=== PATIENT | female | born 1940 | race African-American/Black ===

== ENCOUNTER 2024-03-09 15:20 | Inpatient (IN) | payer OTHER ==
[~2024-03-09] VITALS: Ht 162.6 cm; Wt 77.6 kg
[2024-03-09 04:00] VITALS: BP 139/44; PULSE 66; RESP 18; TEMP 98.1
[2024-03-09 08:00] VITALS: BP 140/54; PULSE 74; RESP 20; TEMP 98
[2024-03-09 12:00] VITALS: BP 160/69; PULSE 72; RESP 17; TEMP 98
[~2024-03-09 15:20] MED LIST: BISO10TA28 PO; LOSA100T33 PO; MINO2.5T19 PO
[2024-03-09 17:32] LABS: DIFFERENTIAL COMMENT 1; HEMATOCRIT. 31.3 % (36.0-48.0); HEMOGLOBIN. 9.5 g/dL (12.0-16.0); MEAN CORPUSCULAR HGB CONC 30.3 g/dL (31.0-37.0); MEAN CORPUSCULAR VOLUME 92.5 fL (81.0-99.0); MEAN PLATELET VOLUME 8.1 fl (7.4-10.4); PLATELET 202 x1000/uL (130-400); RED BLOOD CELL COUNT 3.39 mill/uL (4.2-5.4); RED CELL DISTRIBUTION WIDTH 18.1 % (11.6-14.6); WHITE BLOOD COUNT 11.6 x1000/uL (4.5-11.0)
[2024-03-09 17:39] LABS: CHLORIDE 106 mEq/L (98-107); SODIUM 138 mEq/L (136-145)
[2024-03-09 17:40] LABS: CALCIUM 8.6 mg/dL (8.7-10.4); CARBON DIOXIDE 19 mEq/L (21-32)
[2024-03-09 17:45] LABS: CREATININE 3.2 mg/dL (0.6-1.0); GLUCOSE 266 mg/dL (70-105); UREA NITROGEN BLOOD 39 mg/dL (9-23)
[2024-03-09 17:46] LABS: AMMONIA < 17 uMol/L (<32); ETHANOL BLOOD < 10 mg/dL (<10)
[2024-03-09 17:47] LABS: TROPONIN I HIGH SENSITIVITY 57 ng/L (3.0-34)
[2024-03-09 18:28] LABS: PLATELET ESTIMATE NORMAL
[2024-03-09 18:29] LABS: ANISOCYTOSIS 1+; HYPOCHROMASIA 1+
[2024-03-09] MEDS ORDERED: ASPIRIN 81MG TABLET PO ONE (19:30)
[2024-03-09] MEDS ORDERED: ACETAMINOPHEN 325MG TABLET PO ONE (20:45)
[2024-03-09] MEDS ORDERED: ACETAMINOPHEN 325MG TABLET PO PRN (21:15)
[2024-03-09] MEDS ORDERED: GUAIFENESIN 200MG/10ML SUGAR FREE UDC PO PRN (21:15)
[2024-03-09] MEDS ORDERED: IPRATROPIUM/ALBUTEROL 0.5-3(2.5)MG/3ML NEB HHN PRN (21:15)
[2024-03-09] MEDS ORDERED: CLONIDINE 0.1MG TABLET PO PRN (21:15)
[2024-03-09] MEDS ORDERED: ONDANSETRON HCL 4MG/2ML INJ IV PRN (21:15)
[2024-03-09] MEDS: HYDROCODONE/ACETAMINOPHEN 10/325MG TABLET PO NR (21:30)
[2024-03-09] MEDS ORDERED: HYDROCODONE/ACETAMINOPHEN 5/325MG TABLET PO ONE (21:30)
[2024-03-09 21:52] LABS: IRON 55 ug/dL (50-170)
[2024-03-09 21:53] LABS: TRIGLYCERIDE 152 mg/dL (0-150)
[2024-03-09 21:54] LABS: LDL CHOLESTEROL 92 mg/dL (5-100)
[2024-03-09 21:55] LABS: ALBUMIN 3.3 g/dL (3.2-4.8); CHOLESTEROL 175 mg/dL (<200); HDL CHOLESTEROL 55 mg/dL (>65); TOTAL IRON BINDING CAPACITY 122 ug/dl (250-425)
[2024-03-09 21:58] LABS: T4 FREE 1.35 ng/dL (0.89-1.76)
[2024-03-09 22:07] LABS: FERRITIN 1058 ng/mL (10-291); FOLIC ACID (FOLATE) SERUM 18.96 ng/mL (>5.38); VITAMIN B12 SERUM 600 pg/mL (211-911)
[2024-03-09] MEDS ORDERED: DEXTROSE 50% WATER 50ML SYRINGE IV PRN (22:30)
[2024-03-09] MEDS ORDERED: MELATONIN 3MG TABLET PO PRN (22:45)
[2024-03-09] MEDS: SODIUM CHLORIDE 0.9% 1,000 ML IV SCH (23:19)
[2024-03-09 23:30] VITALS: BP 140/54; PULSE 74; RESP 20; TEMP 98
[2024-03-09] MEDS: ACETAMINOPHEN 325MG TABLET PO PRN (23:34)
[2024-03-10] VITALS: BP 160/69; PULSE 72; RESP 17; TEMP 98
[2024-03-10] MEDS: CEFTRIAXONE 1GM/50ML 50 ML IV SCH ×2 (00:09→17:39)
[2024-03-10] MEDS: DIPHENHYDRAMINE 50MG CAPSULE PO NR (00:42)
[2024-03-10 03:03] LABS: PHOSPHORUS 4.4 mg/dL (2.5-4.9)
[2024-03-10 03:04] LABS: CREATINE KINASE 39 IU/L (34-145)
[2024-03-10 03:57] LABS: TROPONIN I HIGH SENSITIVITY 70 ng/L (3.0-34)
[2024-03-10 04:00] VITALS: BP 139/44; PULSE 66; RESP 18; TEMP 98.1
[2024-03-10] MEDS: BLOOD SUGAR DIAGNOSTIC STRIP TEST SCH (06:17)
[2024-03-10] MEDS: INSULIN LISPRO 100 UNITS/ML SUBCUT SCH (07:40)
[2024-03-10 08:00] VITALS: BP 145/53; PULSE 71; RESP 18; TEMP 99.1
[2024-03-10] MEDS ORDERED: BISOPROLOL FUMARATE PO SCH (09:00)
[2024-03-10] MEDS: BISOPROLOL FUMARATE 5 MG TABLET PO SCH (09:00)
[2024-03-10] MEDS: LOSARTAN 100 MG TABLET PO SCH (09:12)
[2024-03-10] MEDS: MINOXIDIL 2.5MG TABLET PO SCH (09:12)
[2024-03-10] MEDS: PANTOPRAZOLE 40MG DR TABLET PO SCH (09:13)
[2024-03-10] MEDS: DIPHENHYDRAMINE 25MG CAPSULE PO PRN (09:13)
[2024-03-10 10:02] LABS: HEMATOCRIT 25.2 % (36.0-48.0); HEMOGLOBIN 8.2 g/dL (12.0-16.0); MEAN CORPUSCULAR HEMOGLOBIN 29.1 pg (28.0-32.0); MEAN CORPUSCULAR HGB CONC 32.5 g/dL (31.0-37.0); MEAN CORPUSCULAR VOLUME 89.7 fL (81.0-99.0); PLATELET 162 x1000/uL (130-400); RED BLOOD CELL COUNT 2.81 mill/uL (4.2-5.4); RED CELL DISTRIBUTION WIDTH 17.4 % (11.6-14.6); WHITE BLOOD COUNT 7.7 x1000/uL (4.5-11.0)
[2024-03-10 10:16] LABS: CHLORIDE 108 mEq/L (98-107); POTASSIUM 3.8 mEq/L (3.5-5.1); SODIUM 137 mEq/L (136-145)
[2024-03-10 10:17] LABS: CALCIUM 7.9 mg/dL (8.7-10.4); CARBON DIOXIDE 21 mEq/L (21-32)
[2024-03-10 10:22] LABS: CREATININE 3.3 mg/dL (0.6-1.0); GLUCOSE 225 mg/dL (70-105); UREA NITROGEN BLOOD 35 mg/dL (9-23)
[2024-03-10 10:24] LABS: ALANINE AMINOTRANSFERASE 8 IU/L (10-49); ALBUMIN 2.8 g/dL (3.2-4.8); ASPARTATE AMINOTRANSFERASE 20 IU/L (<34); BILIRUBIN TOTAL 0.2 mg/dL (0.1-1.0); PROTEIN TOTAL 5.7 g/dL (6.0-8.3)
[2024-03-10 10:25] LABS: CREATINE KINASE 34 IU/L (34-145)
[2024-03-10 11:26] LABS: TROPONIN I HIGH SENSITIVITY 48 ng/L (3.0-34)
[2024-03-10 12:00] VITALS: BP 162/70; PULSE 98; RESP 18; TEMP 96.6
[2024-03-10] MEDS: ENOXAPARIN 80MG/0.8ML SYR SUBCUT SCH (13:48)
[2024-03-10 16:00] VITALS: BP 160/60; PULSE 74; RESP 18; TEMP 97.3
[2024-03-10 17:19] VITALS: BP 160/80; PULSE 74; TEMP 97.3; O2SAT 100
== END 2024-03-10 18:45 | disposition short-term general hospital (02) | DRG 74 ==
LOC: ER 15:20 → 8WST 20:41 → EDBEDREQ 20:44 → EDBEDREQTM 20:44
PROVIDERS: ADMIT Internal Medicine; ATTEND Internal Medicine
DX: G90.8 Other disorders of autonomic nervous system (principal); N39.0 Urinary tract infection, site not specified; I13.0 Hypertensive heart and chronic kidney disease with heart failure and stage 1 through stage 4 chronic kidney disease, or unspecified chronic kidney disease; I67.82 Cerebral ischemia; R47.01 Aphasia; I95.1 Orthostatic hypotension; E78.5 Hyperlipidemia, unspecified; I50.9 Heart failure, unspecified; N18.9 Chronic kidney disease, unspecified; J45.909 Unspecified asthma, uncomplicated; D64.9 Anemia, unspecified; E11.22 Type 2 diabetes mellitus with diabetic chronic kidney disease; D72.829 Elevated white blood cell count, unspecified; Z96.651 Presence of right artificial knee joint; Z79.4 Long term (current) use of insulin; Z86.73 Personal history of transient ischemic attack (TIA), and cerebral infarction without residual deficits; Z74.01 Bed confinement status; L89.899 Pressure ulcer of other site, unspecified stage; E11.621 Type 2 diabetes mellitus with foot ulcer; E11.65 Type 2 diabetes mellitus with hyperglycemia
CPT/HCPCS: 36415; 71045; 76770; 80048; 80053; 80061; 80320; 82040; 82140; 82550; 82607; 82728; 82746; 82962; 83036; 83540; 83550; 83605; 83735; 83880; 84100; 84439; 84443; 84484; 85025; 85027; 93005; 93970; 99291; C1893; J0696; J1650; J1815; Q0163; G0480

== ENCOUNTER 2025-08-21 23:03 | Inpatient (IN) | payer OTHER, MEDICARE ==
[~2025-08-21] VITALS: Ht 165.1 cm; Wt 71.2 kg
[~2025-08-21 23:03] MED LIST changes: +ASPI-1497 MT; +ATOR-2 MT; +CLOP-31 MT; +FOLI0.8T53 PO; +HYDR100T31; +ISOS30TA91; +SEVE800T25
[2025-08-21 23:05] VITALS: O2SAT 100
[2025-08-22] VITALS (14 sets, daily range): BP systolic 99–192; BP diastolic 59–117; PULSE 58–123; RESP 10–20; TEMP 36.33624–36.8; O2SAT 98–100
[2025-08-22 00:24] LABS: BASOPHILS % 0.5 % (0.0-2.0); EOSINOPHILS % 0.4 % (0.0-5.0); HEMATOCRIT. 27.5 % (36.0-48.0); HEMOGLOBIN. 9.0 g/dL (12.0-16.0); LYMPHOCYTES % 14.0 % (20.0-50.0); MEAN PLATELET VOLUME 8.1 fl (7.4-10.4); MONOCYTES % 7.8 % (2.0-8.0); NEUTROPHILS % 77.3 % (40.0-76.0); PLATELET 244 x1000/uL (130-400); RED BLOOD CELL COUNT 2.91 mill/uL (4.2-5.4); RED CELL DISTRIBUTION WIDTH 17.1 % (11.6-14.6)
[2025-08-22 00:38] LABS: UREA NITROGEN BLOOD 55 mg/dL (9-23)
[2025-08-22 00:39] LABS: ASPARTATE AMINOTRANSFERASE 13 IU/L (<34)
[2025-08-22 00:40] LABS: BILIRUBIN DIRECT < 0.1 mg/dL (<=3.0); BILIRUBIN TOTAL < 0.2 mg/dL (0.1-1.0); PHOSPHORUS 3.4 mg/dL (2.5-4.9); PROTEIN TOTAL 7.3 g/dL (6.0-8.3)
[2025-08-22 00:50] LABS: CREATININE 6.1 mg/dL (0.6-1.0)
[2025-08-22 00:51] LABS: TROPONIN I HIGH SENSITIVITY 123 ng/L (3.0-34)
[2025-08-22 01:05] LABS: INR 1.0
[2025-08-22] MEDS ORDERED: HEPARIN 60 UNITS/KG BOLUS IV SCH (02:15)
[2025-08-22] MEDS ORDERED: HEPARIN BOLUS PRN aPTT 30-44 IV ×2 (02:15→02:22)
[2025-08-22] MEDS ORDERED: HEPARIN BOLUS PRN aPTT <30 IV ×2 (02:15→02:22)
[2025-08-22] MEDS: DIPHENHYDRAMINE 25MG CAPSULE PO ONE (02:31)
[2025-08-22] MEDS: HYDRALAZINE 20MG/ML VIAL IV NR (02:31)
[2025-08-22] MEDS: HEPARIN 60 UNITS/KG BOLUS IV NR (02:52)
[2025-08-22] MEDS: HEPARIN 25,000 UNITS PREMIX 250 ML IV SCH (02:56)
[2025-08-22] MEDS: ASPIRIN 81MG TABLET PO NR (02:58)
[2025-08-22] MEDS ORDERED: IPRATROPIUM/ALBUTEROL 0.5-3(2.5)MG/3ML NEB HHN PRN (04:00)
[2025-08-22] MEDS ORDERED: MAGNESIUM/ALUMINUM HYDROXIDE/SIMETHICONE 30ML UDC PO PRN (04:00)
[2025-08-22] MEDS ORDERED: DEXTROSE 50% WATER 50ML SYRINGE IV PRN ×2 (04:00→06:45)
[2025-08-22] MEDS ORDERED: ONDANSETRON HCL 4MG/2ML INJ IV PRN (04:00)
[2025-08-22] MEDS ORDERED: GUAIFENESIN 200MG/10ML SUGAR FREE UDC PO PRN (04:00)
[2025-08-22] MEDS: ISOSORBIDE MONONITRATE 30MG TABLET SR 24HR PO SCH ×2 (05:22→14:52)
[2025-08-22] MEDS: LOSARTAN 100 MG TABLET PO SCH (05:22)
[2025-08-22] MEDS: HYDRALAZINE HCL 100MG TABLET PO SCH (05:23)
[2025-08-22] MEDS: BLOOD SUGAR DIAGNOSTIC STRIP TEST SCH ×2 (07:30)
[2025-08-22] MEDS: INSULIN LISPRO 100 UNITS/ML SUBCUT SCH (08:00)
[2025-08-22] MEDS: ASPIRIN 81MG TABLET PO SCH (08:49)
[2025-08-22] MEDS: SEVELAMER CARBONATE 800 MG TABLET PO SCH (08:49)
[2025-08-22] MEDS: FAMOTIDINE 20MG/2ML VIAL IV SCH (08:50)
[2025-08-22] MEDS: CLOPIDOGREL 75MG TABLET PO SCH (08:50)
[2025-08-22] MEDS: FOLIC ACID/VITAMIN B COMP W-C TABLET PO SCH (09:23)
[2025-08-22] MEDS: HYDRALAZINE 20MG/ML VIAL IV PRN (10:45)
[2025-08-22 14:03] LABS: FOLIC ACID (FOLATE) SERUM > 20.00 ng/mL (>5.38)
[2025-08-22 14:31] LABS: TROPONIN I HIGH SENSITIVITY 81 ng/L (3.0-34)
[2025-08-22] MEDS ORDERED: LIDOCAINE HCL 1% 10 MG/ML 5ML VIAL INJ NR (17:00)
[2025-08-22] MEDS ORDERED: ENOXAPARIN 30MG/0.3ML SYR SUBCUT SCH (18:00)
[2025-08-22 18:39] LABS: HEPATITIS A AB IGM NEGATIVE (Negative); HEPATITIS B CORE AB IGM NEGATIVE (Negative)
[2025-08-22 18:40] LABS: HEPATITIS C AB NON REACTIVE (Neg) (Negative)
[2025-08-22] MEDS: ACETAMINOPHEN 325MG TABLET PO PRN (21:29)
[2025-08-22] MEDS: ATORVASTATIN CALCIUM 40MG TABLET PO SCH (21:29)
[2025-08-22] MEDS: EPOETIN ALFA-EPBX 4,000 UNITS/ML VIAL SUBCUT SCH (21:30)
[2025-08-23] VITALS (14 sets, daily range): BP systolic 133–190; BP diastolic 53–95; PULSE 57–76; RESP 9–22; TEMP 36.3–36.8; O2SAT 95–100
[2025-08-23] MEDS: ISOSORBIDE MONONITRATE 60MG TABLET SR 24HR PO SCH (09:00)
[2025-08-23] MEDS ORDERED: CLOP-31 MT ×2 (11:45→16:43)
[2025-08-23] MEDS ORDERED: ASPI-1497 MT ×2 (11:45→16:43)
[2025-08-23] MEDS ORDERED: SEVE800T25 PO ×2 (11:45→16:43)
[2025-08-23] MEDS ORDERED: ATOR-2 MT ×2 (11:45→16:43)
[2025-08-23] MEDS ORDERED: ISOS30TA91 PO ×2 (11:45→16:43)
[2025-08-23] MEDS ORDERED: FOLI0.8T53 PO ×2 (11:45→16:43)
[2025-08-23] MEDS ORDERED: BISO10TA28 PO ×2 (11:45→16:43)
[2025-08-23] MEDS ORDERED: LOSA100T33 PO ×2 (11:45→16:43)
[2025-08-23] MEDS ORDERED: MINO2.5T19 PO ×2 (11:45→16:43)
[2025-08-23] MEDS ORDERED: HYDR100T31 PO ×2 (11:45→16:43)
[2025-08-23] MEDS: ENOXAPARIN 30MG/0.3ML SYR SUBCUT SCH (17:50)
[2025-08-23 19:25] LABS: UREA NITROGEN BLOOD 37.0 mg/dL (9-23)
[2025-08-23 19:39] LABS: CREATININE 5.1 mg/dL (0.6-1.0)
[2025-08-23] MEDS: CEFTRIAXONE 1GM/50ML 50 ML IV SCH (20:45)
[2025-08-24] VITALS (19 sets, daily range): BP systolic 140–194; BP diastolic 42–107; PULSE 57–80; RESP 10–17; TEMP 36.4–36.7; O2SAT 98–100
[2025-08-24] MEDS: CLONIDINE 0.2MG TABLET PO NR (10:49)
[2025-08-24 11:03] LABS: BASOPHILS % 0.8 % (0.0-2.0); EOSINOPHILS % 6.7 % (0.0-5.0); HEMATOCRIT. 27.8 % (36.0-48.0); HEMOGLOBIN. 8.8 g/dL (12.0-16.0); LYMPHOCYTES % 26.0 % (20.0-50.0); MEAN PLATELET VOLUME 8.3 fl (7.4-10.4); MONOCYTES % 13.0 % (2.0-8.0); NEUTROPHILS % 53.5 % (40.0-76.0); PLATELET 222 x1000/uL (130-400); RED BLOOD CELL COUNT 2.87 mill/uL (4.2-5.4); RED CELL DISTRIBUTION WIDTH 18.4 % (11.6-14.6)
[2025-08-24 11:36] LABS: UREA NITROGEN BLOOD 39 mg/dL (9-23)
[2025-08-24 11:52] LABS: CLARITY URINE CLOUDY (CLEAR); COLOR URINE YELLOW (YELLOW); GLUCOSE URINE TRACE (NEGATIVE); KETONES URINE TRACE (NEGATIVE); LEUKOCYTE ESTERASE URINE 3+ (NEGATIVE); NITRITE URINE POSITIVE (NEGATIVE); OCCULT BLOOD URINE 2+ (NEGATIVE); PH URINE >=9.0 (4.5-8.0); PROTEIN URINE 3+ (NEGATIVE); SPECIFIC GRAVITY URINE 1.019 (1.005-1.030); UROBILINOGEN URINE 0.2 E.U./dL (0.2-1.0)
[2025-08-24 12:11] LABS: *AMPHETAMINES SCREEN URINE NEGATIVE (NEGATIVE); *BARBITURATES SCREEN URINE NEGATIVE (NEGATIVE); *BENZODIAZEPINES SCREEN URINE NEGATIVE (NEGATIVE)
[2025-08-24 12:12] LABS: *COCAINE SCREEN URINE NEGATIVE (NEGATIVE); CANNABINOID URINE SCREEN NEGATIVE (NEGATIVE); ECSTASY MDMA SCREEN URINE NEGATIVE (NEGATIVE); METHADONE URINE SCREEN NEGATIVE (NEGATIVE); OPIATES URINE SCREEN NEGATIVE (NEGATIVE); PHENCYCLIDINE URINE SCREEN NEGATIVE (NEGATIVE); SQUAMOUS EPITHELIAL CELL URINE 1+ /lpf (RARE/1+)
[2025-08-24 12:13] LABS: BACTERIA URINE 2+
[2025-08-24 12:14] LABS: WBC URINE 50-100 /hpf (0-2)
[2025-08-24 12:51] LABS: CREATININE 5.5 mg/dL (0.6-1.0)
[2025-08-24] MEDS: NYSTATIN POWDER 15GM TOP SCH (13:11)
[2025-08-24] MEDS: CLONIDINE 0.1MG TABLET PO PRN (13:16)
[2025-08-24] MEDS ORDERED: AMLO5TAB88 PO (16:47)
[2025-08-24] MEDS ORDERED: AMLODIPINE 5MG TABLET PO SCH (21:00)
[2025-08-24] MEDS: AMLODIPINE 5MG TABLET PO SCH (22:28)
[2025-08-25] VITALS (12 sets, daily range): BP systolic 142–191; BP diastolic 46–92; PULSE 55–70; RESP 10–16; TEMP 36.5–37.1; O2SAT 63–100
[2025-08-25 10:47] LABS: CREATININE 4.2 mg/dL (0.6-1.0); UREA NITROGEN BLOOD 28.0 mg/dL (9-23)
[2025-08-26] VITALS (12 sets, daily range): BP systolic 139–174; BP diastolic 54–82; PULSE 62–80; RESP 14–18; TEMP 36.3–37.2; O2SAT 96–98
[2025-08-26] MEDS: DOCUSATE SODIUM 100MG CAPSULE PO PRN (09:51)
[2025-08-26] MEDS: POLYETHYLENE GLYCOL 3350 (17GM) 1 DOSE PACK PO SCH (17:52)
[2025-08-26] MEDS: BISACODYL 10MG SUPP PR NR (17:59)
[2025-08-26] MEDS: CLONIDINE 0.1MG TABLET PO SCH (21:37)
[2025-08-27] VITALS (15 sets, daily range): BP systolic 113–156; BP diastolic 53–108; PULSE 60–74; RESP 14–18; TEMP 36.55848–37.1; O2SAT 96–100
== END 2025-08-27 18:50 | disposition home or self-care (01) | DRG 640 ==
LOC: ER 23:03 → 5EST 08-22 02:28 → EDBEDREQSVC 08-22 02:33 → EDBEDREQ 08-22 02:33 → EDBEDREQTM 08-22 02:33 → EDBEDREQ 08-22 02:34 → ENRESERV 08-22 03:00
PROVIDERS: ADMIT Internal Medicine; ATTEND Internal Medicine
PROC: 5A1D70Z Performance of Urinary Filtration, Intermittent, Less than 6 Hours Per Day (ICD-10-PCS; principal; 2025-08-22)
PROC: 5A1D70Z Performance of Urinary Filtration, Intermittent, Less than 6 Hours Per Day (ICD-10-PCS; 2025-08-24)
PROC: 5A1D70Z Performance of Urinary Filtration, Intermittent, Less than 6 Hours Per Day (ICD-10-PCS; 2025-08-27)
DX: E87.70 Fluid overload, unspecified (principal); I21.A1 Myocardial infarction type 2; L89.313 Pressure ulcer of right buttock, stage 3; L89.323 Pressure ulcer of left buttock, stage 3; N18.6 End stage renal disease; I13.2 Hypertensive heart and chronic kidney disease with heart failure and with stage 5 chronic kidney disease, or end stage renal disease; I16.1 Hypertensive emergency; I50.30 Unspecified diastolic (congestive) heart failure; N39.0 Urinary tract infection, site not specified; Z99.2 Dependence on renal dialysis; Z79.02 Long term (current) use of antithrombotics/antiplatelets; I69.351 Hemiplegia and hemiparesis following cerebral infarction affecting right dominant side; D63.1 Anemia in chronic kidney disease; E11.22 Type 2 diabetes mellitus with diabetic chronic kidney disease; I34.0 Nonrheumatic mitral (valve) insufficiency; Z86.718 Personal history of other venous thrombosis and embolism; E11.65 Type 2 diabetes mellitus with hyperglycemia; I44.7 Left bundle-branch block, unspecified; F17.210 Nicotine dependence, cigarettes, uncomplicated; L30.4 Erythema intertrigo; E78.5 Hyperlipidemia, unspecified; K59.04 Chronic idiopathic constipation; Z79.899 Other long term (current) drug therapy; Z88.5 Allergy status to narcotic agent
CPT/HCPCS: 36415; 71045; 80048; 80076; 80305; 80320; 81003; 82746; 82962; 83036; 83735; 83880; 84100; 84484; 85025; 86705; 86709; 87077; 87186; 87340; 87426; 90935; 92610; 93005; 93970; 96365; 96375; 97163; 97166; 99285; A4606; J0360; J0696; J0885; J1308; J1644; J1650; J1815; J2003; Q0163; G0480